=== PATIENT | male | born 1980 | race Caucasian/White ===

== ENCOUNTER 2021-07-04 12:04 | Emergency (ER) | payer BC ==
[~2021-07-04] VITALS: Ht 185.4 cm; Wt 108.9 kg
[2021-07-04 12:19] VITALS: BP 140/94
--- NOTE | 2021-07-04 12:26 | NUR ---
JANE SANCHEZ BEDSIDE EVALUATING PT
--- NOTE | 2021-07-04 12:42 | NUR ---
41Y MALE BIB SELF DUE TO "FEELING LIKE HIS ANUS IS WET AND MOIST." PER PATIENT HE LAST HAD UNPROTECTED SEX X5 MONTHS AGO. DENIES ANY PAIN AND DENIES ANY BLOOD IN STOOL. PT A&OX4, EQUAL CHEST RISE AND FALL;UNLABORED RESPIRATIONS PMH: HEP C NKA
--- NOTE | 2021-07-04 13:01 | NUR ---
LAB BEDSIDE COLLECTING BLOODWORK
[2021-07-04] MEDS ORDERED: PHEN1SUP5 RC (13:02)
--- NOTE | 2021-07-04 13:12 | NUR ---
PT IN RESTROOM PROVIDING UA
--- NOTE | 2021-07-04 13:22 | NUR ---
URINE COLLECTED AND WALKED TO LAB
[2021-07-04 13:23] VITALS: BP 140/94
--- NOTE | 2021-07-04 13:23 | NUR ---
PT SECONDARY NUMBER [phone]
--- NOTE | 2021-07-04 13:23 | NUR ---
Patient discharged with v/s stable. Written and verbal after care instructions given and explained. Patient alert, oriented and verbalized understanding of instructions. Ambulatory with steady gait. All questions addressed prior to discharge. ID band removed. Patient advised to follow up with PMD. Rx of PREPARATION H SUPPOSITORY given. Patient educated on indication of medication including possible reaction and side effects. Opportunity to ask questions provided and answered.
[2021-07-05 15:07] LABS: HEPATITIS B SURFACE ANTIGEN Negative (Negative)
== END 2021-07-04 13:23 | disposition home or self-care (01) ==
LOC: MED 12:04
DX: K62.5 Hemorrhage of anus and rectum (principal)
CPT/HCPCS: 36415; 86592; 86803; 87340; 87491; 87529; 99283